=== PATIENT | female | born 1965 | race Caucasian/White ===

== ENCOUNTER → 2017-02-01 | Outpatient (CLI) | payer BC ==
[~2017-02-01] MED LIST: ASTHMA INHALER; CRUTCHES; PERCOCET 325 MG1 TA2 PO; PREDNISONE10 MG PO; SINGULAIR 110 MG/TAB PO; ZITHROMAX Z PA250 MG PO
== END ==
LOC: MC.RAD 10:40
DX: Z12.31 Encounter for screening mammogram for malignant neoplasm of breast (principal)

== ENCOUNTER → 2017-03-30 | Outpatient (CLI) | payer BC | LOC: COL.RAD 10:53 | DX: K80.20 Calculus of gallbladder without cholecystitis without obstruction (principal); N20.0 Calculus of kidney; K76.9 Liver disease, unspecified | CPT/HCPCS: J7050; Q9967 ==

== ENCOUNTER 2019-04-01 11:00 | Outpatient (RCR) | payer BC | END 2019-06-03 | disposition home or self-care (01) | LOC: WSST | DX: J38.3 Other diseases of vocal cords (principal) ==

== ENCOUNTER 2019-11-09 17:49 | Emergency (ER) | payer BC ==
[~2019-11-09] VITALS: Ht 157.5 cm; Wt 81.8 kg
[2019-11-09 19:50] LABS: COLLECTION METHOD CLEAN CATCH
[2019-11-09 19:58] LABS: PH 5 (5-8); SQUAMOUS EPITHELIAL 0-2 /hpf; URINE APPEARANCE Cloudy; URINE BACTERIA Rare /hpf; URINE BILIRUBIN Negative (NEGATIVE); URINE BLOOD 3+ (NEGATIVE); URINE COLOR Yellow; URINE GLUCOSE Negative (NEGATIVE); URINE KETONE Negative (NEGATIVE); URINE LEUKOCYTE ESTERASE 3+ (NEGATIVE); URINE NITRATE Negative (NEGATIVE); URINE PROTEIN(semi-quant) 2+ (NEGATIVE); URINE RBC >50 /hpf; URINE UROBILINOGEN Negative (NEGATIVE)
[2019-11-09] MEDS ORDERED: OMNICEF 300MG300 MG PO (20:19)
[2019-11-09 20:30] VITALS: BP 121/78; PULSE 80; TEMP 98
== END 2019-11-09 20:40 | disposition home or self-care (01) ==
LOC: COL.ER 17:49
PROVIDERS: Physician Assistant
DX: N39.0 Urinary tract infection, site not specified (principal); R11.0 Nausea; Z79.52 Long term (current) use of systemic steroids; Z87.19 Personal history of other diseases of the digestive system; Z87.442 Personal history of urinary calculi; Z90.49 Acquired absence of other specified parts of digestive tract; Z90.710 Acquired absence of both cervix and uterus
CPT/HCPCS: J0696; J1885; J2550; J3010; J7030

== ENCOUNTER → 2020-02-13 | Outpatient (CLI) | payer BC ==
[~2020-02-13] MED LIST changes: +OMNICEF 300MG300 MG PO
== END ==
LOC: MC.RAD 07:15
DX: Z12.31 Encounter for screening mammogram for malignant neoplasm of breast (principal)